=== PATIENT | female | born 1930 | race Caucasian/White ===

== ENCOUNTER 2016-11-15 13:17 | Emergency (ER) | payer OTHER, MEDICARE ==
[~2016-11-15] VITALS: Ht 154.9 cm; Wt 63.5 kg
[~2016-11-15 13:17] MED LIST: AMLODIPINE BESY10 M1 PO; ANTIVERT 12.512.5 MG PO; ATENOLOL50 M1 PO; CALCIUM 600-D 61 TAB PO; CENTRUM SILVER1 EAC3 PO; ECOTRIN81 MG PO; ELIQUIS5 M1 PO; FIBER500 MG PO; LEVOXYL50 MCG PO; LIPITOR10 M1 PO; MECLIZINE HCL25 MG PO; NORVASC 5MG TAB5 MG PO; ROBITUSSIN W/CO10 ML PO; VITAMIN B-121000 MC3 SL; VITAMIN C500 M6 PO; VITAMIN D31000 UNI2 PO; ZOFRAN ODT4 MG SL; ZOFRAN4 M1 SL; ZOFRAN4 M2 PO
[2016-11-15 13:31] VITALS: BP 150/79
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
--- NOTE | 2016-11-15 14:36 | RADIOLOGY REPORT ---
EXAMINATION: XR ANKLE, RIGHT CLINICAL INFORMATION: Pain status post fall COMPARISON: None TECHNIQUE: AP, lateral, and mortise views of the right ankle. Lateral view is limited due to positioning. FINDINGS: Bone mineral density appears diffusely decreased without evidence of fracture or dislocation. No focal osseous lesions are seen. Joint space is maintained without productive or erosive changes. No definite joint effusion is seen. There is extensive circumferential soft tissue prominence age and etiology indeterminate. IMPRESSION: Osteopenia. No fracture or dislocation is seen.
--- NOTE | 2016-11-15 14:45 | CT SCAN REPORT ---
EXAMINATION: CT HEAD WITHOUT CONTRAST CLINICAL INFORMATION: Fall. Evaluate for intracranial hemorrhage. COMPARISON: CT scan of the head 10/11/2015. TECHNIQUE: Contiguous axial imaging was performed from the skull base to vertex without intravenous administration of contrast. DLP: 614.64 mGy-cm FINDINGS: There is no acute intracranial hemorrhage or abnormal extra-axial collection. No intracranial mass effect or midline shift. Lateral and third ventricles are normal. No hydrocephalus. Verdugo-white matter differentiation is grossly preserved and there is no evidence of acute territorial infarct. The calvarium and skull base are intact. Mastoid air cells and middle ear cavities are well aerated. Visualized paranasal sinuses are well aerated. Globes and orbits are symmetric. IMPRESSION: Unremarkable CT scan of the head. No evidence of acute territorial infarct or hemorrhage.
== END 2016-11-15 15:22 ==
LOC: ERH 13:17
DX: S93.401A Sprain of unspecified ligament of right ankle, initial encounter (principal); S00.83XA Contusion of other part of head, initial encounter; W18.09XA Striking against other object with subsequent fall, initial encounter; Y92.9 Unspecified place or not applicable; Y93.9 Activity, unspecified
CPT/HCPCS: 73610-RT

== ENCOUNTER 2017-11-08 13:51 | Emergency (ER) | payer OTHER, MEDICARE ==
[~2017-11-08] VITALS: Ht 157.5 cm; Wt 56.2 kg
[2017-11-08 14:03] VITALS: BP 129/78
--- NOTE | 2017-11-08 14:51 | RADIOLOGY REPORT ---
EXAMINATION: XR ELBOW, LEFT CLINICAL INFORMATION: Status post fall. COMPARISON: None TECHNIQUE: Four views of the left elbow. FINDINGS: Normal bony mineralization. No acute fractures identified. There is joint effusion with elevation of the anterior fat pad. Occult fracture cannot be entirely excluded. Moderate to large soft tissue swelling/hematoma posterior elbow. IMPRESSION: Joint effusion. Although acute fracture lines are not identified, occult injury cannot be excluded. Moderate to large hematoma or soft tissue swelling posterior elbow.
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
--- NOTE | 2017-11-08 16:26 | CT SCAN REPORT ---
CT HEAD WITHOUT CONTRAST CLINICAL INFORMATION: Fall on anticoagulation. COMPARISON: Head CT 11/15/2016. TECHNIQUE: Contiguous axial imaging was performed from the skull base to vertex without intravenous administration of contrast. FINDINGS: There is no intracranial hemorrhage, hydrocephalus, extra-axial surface collection, midline shift, or other herniation pattern. Verdugo to white matter differentiation is diffusely maintained without evidence of an evolved acute territorial infarct. The basilar cisterns are preserved. No significant soft tissue abnormality. No acute osseous abnormality. There is moderate mucosal thickening within the left sphenoid sinus. The remaining paranasal sinuses and the mastoid air cells are clear. IMPRESSION: No acute intracranial abnormality.
== END 2017-11-08 16:44 ==
LOC: ERH 13:51
DX: S42.402A Unspecified fracture of lower end of left humerus, initial encounter for closed fracture (principal); W10.9XXA Fall (on) (from) unspecified stairs and steps, initial encounter; Y92.9 Unspecified place or not applicable; Y93.89 Activity, other specified
CPT/HCPCS: 73080-LT

== ENCOUNTER 2018-01-08 08:37 | Emergency (ER) | payer OTHER, MEDICARE ==
[~2018-01-08] VITALS: Ht 154.9 cm; Wt 56.7 kg
--- NOTE | 2018-01-08 08:47 | ED GENERAL ADULT ---
History of Present Illness General Chief Complaint: General Adult Stated Complaint: BACK/HIP PAIN Source: patient Exam Limitations: no limitations Vital Signs & Intake/Output Vital Signs & Intake/Output Vital Signs Date Time Temp Pulse Resp B/P B/P Pulse O2 O2 Flow FiO2 Mean Ox Delivery Rate 01/08 1111 97.2 56 18 169/72 97 Room Air 01/08 0841 97.0 61 20 186/81 99 Room Air Allergies Coded Allergies: NO KNOWN ALLERGIES (10/03/13) Reconcile Medications Amlodipine Besylate 10 MG TABLET 1 TAB PO DAILY BP (Reported) Apixaban (Eliquis) 5 MG TABLET 1 TAB PO BID BLOOD THINNER (Reported) Ascorbate Calcium (Vitamin C) 500 MG TABLET 1 TAB PO DAILY VITAMIN SUPPORT ( Reported) Aspirin (Aspirin*) 81 MG TAB.CHEW 1 TAB PO DAILY HEART HEALTH (Reported) Atenolol 50 MG TABLET 1 TAB PO BID HEART (Reported) Atorvastatin Calcium (Lipitor) 10 MG TABLET 1 TAB PO DAILY CHOLESTEROL ( Reported) Cholecalciferol (Vitamin D3) 1,000 UNIT TABLET 3 TAB PO DAILY VITAMIN SUPPORT (Reported) Cyanocobalamin (Vitamin B-12) 1,000 MCG TABLET 1 TAB SL DAILY SUPPLEMENT ( Reported) Levothyroxine Sodium (Levoxyl) 50 MCG TABLET 1 TAB PO DAILY AC THYROID ( Reported) Metoprolol Tartrate (Lopressor) 50 MG TABLET 1 TAB PO BID HEART (Reported) Prednisone 10 MG TABLET 1 TAB PO DAILY ARTHRITIS Triage Note: PT C/O LEFT HIP PAIN WHEN SHE WOKE UP THIS MORNING. PT DENIES TRAUMA. NO SHORTENING, NO ROTATION. PT STATES SHE WAS ABLE TO BEAR WEIGHT. DENIES SURGERY ON HIP Triage Nurses Notes Reviewed? yes Onset: Abrupt Duration: day(s): Timing: recent history HPI: 01/08/18 This is a akilah 87-year-old female presents to the emergency department with left hip pain. She says she woke up this morning and had some pain to the left hip. She denies any trauma. She does have pain with range of motion to the left hip. No abdominal pain. No fever. The onset of the symptoms were abrupt, the duration was just today, the severity was significant as her symptoms required her to come to the emergency department for care. On physical examination she does have decreased range of motion to the left hip. Past History Travel History Traveled to [place] past 21 day No Medical History Any Pertinent Medical History? see below for history Neurological: NONE EENT: NONE Cardiovascular: AFIB, hypertension, hyperlipidemia Respiratory: NONE Gastrointestinal: NONE Hepatic: NONE Renal: NONE Musculoskeletal: NONE Psychiatric: NONE Endocrine: hypothyroidism Blood Disorders: NONE Cancer(s): NONE [employer] REPAIR/Reproductive: NONE History of MRSA: No History of VRE: No History of CDIFF: No Surgical History Surgical History: BILATERAL KNEES Psychosocial History Who do you live with Spouse What is your primary language Upper Sorbian Tobacco Use: Never used ETOH Use: denies use Illicit Drug Use: denies illicit drug use Family History Family History, If Any: BROTHER Relation not specified for: FH: bladder cancer FH: lung cancer Hx Contributory? No Review of Systems Review of Systems Constitutional: Denies: fever. EENTM: Denies: visual changes. Respiratory: Denies: short of breath. Cardiovascular: Denies: chest pain. GI: Denies: abdominal pain. Genitourinary: Reports: no symptoms. Musculoskeletal: Reports: see HPI. Skin: Denies: rash. Neurological/Psychological: Denies: weakness. Hematologic/Endocrine: Denies: bruising, bleeding. Physical Exam Physical Exam General Appearance: alert, awake, anxious Head: atraumatic, normal appearance Eyes: Bilateral: normal appearance, PERRL, EOMI. Ears, Nose, Throat: normal pharynx, normal ENT inspection, hearing grossly normal Neck: normal inspection, supple, full range of motion Respiratory: normal breath sounds, chest non-tender, no respiratory distress Cardiovascular: regular rate/rhythm Peripheral Pulses: 4+ tibialis posterior (L) Gastrointestinal: soft, non-tender Back: decreased range of motion Extremities: no edema Neurologic/Psych: no motor/sensory deficits, awake, alert, oriented x 3 Skin: intact, normal color, warm/dry Comments: The patient has pain to the left lateral aspect of her low back at the level of the pelvis, and pain in the left hip. No abdominal pain. No abdominal tenderness. No midline tenderness. 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 EKG was unchanged. Urinalysis was consistent with contamination a culture was sent. Core Measures ACS in differential dx? No CVA/TIA Diagnosis: No Sepsis Present: No Sepsis Focused Exam Completed? No Progress Differential Diagnoses I considered the following diagnoses in my evaluation of the patient: [Disc herniation, epidural abscess, aortic dissection, aortic aneurysm, cauda equina syndrome, sciatica, herpes zoster, DVT,] Plan of Care: Orders Procedure Date/time Status Add-on Test (ER Only) 01/08 1304 Active EKG 01/08 0943 Active CULTURE,URINE 01/08 942 Active URINALYSIS 01/08 942 Complete Laboratory Tests 01/08/18 0946: Urine Color YEL, Urine Clarity HAZY H, Urine pH 8.0, Ur Specific [place] 1.015, Urine Protein NEG, Urine Ketones NEG, Urine Nitrite NEG, Urine Bilirubin NEG, Urine Urobilinogen 0.2, Ur Leukocyte Esterase NEG, Ur Microscopic SEDIMENT EXAMINED, Urine RBC 1-3, Ur Epithelial Cells OCCAS, Urine Bacteria MANY H, Urine Hemoglobin TRACE-LYSED, Urine Glucose NEG Microbiology 01/08 946 URINE ROUT: Urine Culture - RECD Initial ED EKG: NSR, LVH Prior EKG: unchanged Departure Departure Disposition: HOME OR SELF CARE Condition: Stable Clinical Impression Primary Impression: Arthritis Secondary Impressions: Sciatica Referrals: Grace WILLETT,Raghavendra Gray (PCP/Family) Departure Forms: Customer Survey General Discharge Information Prescriptions: Current Visit Scripts Prednisone 1 TAB PO DAILY #5 TAB Comments The patient was reevaluated. She has pain that is in her right buttock radiating down the leg. X-rays of the pelvis shows arthritis. No compression fracture. She is ambulating. We'll give her a short course of prednisone. She will follow-up with her doctor this week. Urinalysis shows no pyuria. Urine culture was sent. Critical Care Note Critical Care Note Critical Care Time: non-applicable
[2018-01-08] MEDS ORDERED: LOPRESSOR50 M1 PO (09:07)
[2018-01-08] MEDS ORDERED: ASPIRIN81 M4 PO (09:08)
[2018-01-08 11:11] VITALS: BP 169/72
--- NOTE | 2018-01-08 12:17 | RADIOLOGY REPORT ---
EXAMINATION: XR LUMBOSACRAL SPINE CLINICAL INFORMATION: Back pain. COMPARISON: Lumbar spine films 04/29/2015. TECHNIQUE: AP and lateral views of the lumbar spine. FINDINGS: The disc spaces are well preserved. There is a mild scoliosis convex to the left. Vascular calcifications are seen. No acute fractures are seen. IMPRESSION: Mild scoliosis convex to left, unchanged.
--- NOTE | 2018-01-08 12:17 | RADIOLOGY REPORT ---
EXAMINATION: XR HIP, LEFT CLINICAL INFORMATION: Left hip pain. COMPARISON: None. TECHNIQUE: 2 views of the left hip. FINDINGS: Minimal degenerative changes are noted with some supra-acetabular sclerosis and some minimal osteophyte formation. No fractures or dislocations. IMPRESSION: No acute disease.
[2018-01-08] MEDS ORDERED: PREDNISONE10 M2 PO (13:03)
== END 2018-01-08 13:10 ==
LOC: ERH 08:37
DX: M19.90 Unspecified osteoarthritis, unspecified site (principal); M54.42 Lumbago with sciatica, left side
CPT/HCPCS: 72100; 73502-LT; 81001; 87086; 93005; 93010